=== PATIENT | male | born 1980 | race Asian ===

== ENCOUNTER 2022-11-15 03:12 | Outpatient (CLI) | payer OTHER, SELFPAY | END 2022-11-15 03:13 | disposition home or self-care (01) | LOC: AMB 11-24 05:29 | PROVIDERS: Visit Provider Family Medicine | DX: R41.82 Altered mental status, unspecified (principal); F10.129 Alcohol abuse with intoxication, unspecified | CPT/HCPCS: A0425; A0434 ==